=== PATIENT | female | born 1985 | race African-American/Black ===

== ENCOUNTER 2021-03-28 20:45 | Emergency (ER) | payer SELFPAY ==
[~2021-03-28] VITALS: Ht 170.2 cm; Wt 77.1 kg
--- NOTE | 2021-03-28 21:00 | NUR ---
PT [facility] AND [employer] C/O AGGRESSIVE BEHAVIOR WHEN ASKED TO LEAVE HOTEL PROPERTY. PT REFUSES TO ANSWER QUESTIONS AND YELLS PROFANITY AT STAFF. PT ATTACHED TO MONITOR AND POX. GIVEN BLANKET AND CALL LIGHT WITHIN REACH
--- NOTE | 2021-03-28 22:30 | NUR ---
PT DENIES SUICIDAL IDEATION AND REFUSES TO BE SEEN BY MD.
[2021-03-28 22:45] VITALS: BP 130/80
== END 2021-03-28 22:45 | disposition left against medical advice (07) ==
LOC: ER 20:48
DX: R46.2 Strange and inexplicable behavior (principal); Z59.00 Homelessness unspecified; Z20.822 Contact with and (suspected) exposure to COVID-19; Z53.29 Procedure and treatment not carried out because of patient's decision for other reasons
CPT/HCPCS: 87426; 99283; C9803